=== PATIENT | female | born 1965 | race American Indian/Alaskan Native ===

== ENCOUNTER 2016-05-16 13:48 | Emergency (ER) | payer MEDICARE ==
[2016-05-16 14:28] VITALS: BP 180/110
--- NOTE | 2016-05-16 15:02 | Emergency Department Report ---
Chief Complaint: Pain General Stated Complaint: CHEST PAIN/BODY ACHE/NAUSEA Time Seen by Provider: 05/16/16 14:40 - HPI History of Present Illness: 50-year-old female with a past medical history of diabetes and hypertension comes in for complaint of fever chills body aches sore throat since yesterday. Patient does report that her blood sugar was as low as 45 yesterday because she is not eating secondary to sore throat. A little dry cough nausea no vomiting she's been taking Advil for fever last dose was 6:30 this morning. Also complains of headache. Patient reports she is on metformin valsartan glipizide and Klonopin her blood sugar in triage is 132. - Exam Vital Signs: Vital Signs 05/16/16 14:23 Temperature 99.9 F H Pulse Rate 120 H Respiratory 24 Rate Blood Pressure 180/110 O2 Sat by Pulse 100 Oximetry Physical Exam: Patient is alert and oriented 3. Throat erythematous edematous. Cardiovascular tachycardia, respiratory clear to auscultation abdomen soft nontender nondistended bowel sounds throughout MSE screening note: Focused history and physical exam performed. Due to findings the following was ordered: CBC BMP UA has been ordered patient be evaluated in the main ER. Once labs come back if there is stable enough this provider will order hypertensive medicine and Tylenol for pain. ED Disposition for MSE Condition: Stable
[2016-05-16 15:43] LABS: Hematocrit 39.4 % (30.3-42.9); Mean Corpuscular HGB Conc 33 % (30-34); Mean Corpuscular Hemoglobin 28 pg (28-32); Mean Corpuscular Volume 85 fl (79-97); Platelet Count 338 K/mm3 (140-440); Red Blood Count 4.61 M/mm3 (3.65-5.03); White Blood Count 19.4 K/mm3 (4.5-11.0)
[2016-05-16 15:46] LABS: Alanine Aminotransferase 61 units/L (7-56); Albumin 4.1 g/dL (3.9-5); Albumin/Globulin Ratio 1.4 %; Alkaline Phosphatase 106 units/L (35-129); Anion Gap 20 mmol/L; BUN/Creatinine Ratio 12.85; Bilirubin,Total 0.2 mg/dL (0.1-1.2); Blood Urea Nitrogen 9 mg/dL (7-17); Calcium 9.1 mg/dL (8.4-10.2); Carbon Dioxide 22 mmol/L (22-30); Chloride 101.2 mmol/L (98-107); Glucose 127 mg/dL (65-100); Potassium 3.7 mmol/L (3.6-5.0); Sodium 139 mmol/L (137-145)
[2016-05-16 16:38] LABS: Bacteria,Urine 1+ /HPF (Negative); Bilirubin,Urine NEG (Negative); Blood,Urine NEG (Negative); Ketones,Urine NEG (Negative); Leukocyte Esterase,Urine TR (Negative); Mucus,Urine FEW /HPF; Nitrite,Urine NEG (Negative)
[2016-05-16] MEDS ORDERED: TYLENOL PO ONE (19:00)
[2016-05-16] MEDS ORDERED: CATAPRES PO ONE (19:01)
[2016-05-16] MEDS ORDERED: TYLENOL ONE (21:03)
[2016-05-16] MEDS ORDERED: CATAPRES ONE ×2 (21:04→21:24)
--- NOTE | 2016-05-16 23:02 | Emergency Department Report ---
ED General Adult HPI - General Chief complaint: Pain General Stated complaint: CHEST PAIN/BODY ACHE/NAUSEA Time Seen by Provider: 05/16/16 14:40 Source: patient Mode of arrival: Ambulatory Limitations: No Limitations - Related Data Allergies Allergy/AdvReac Type Severity Reaction Status Date / Time No Known Allergies Allergy Unverified 05/16/16 14:30 ED Review of Systems ROS: Stated complaint: CHEST PAIN/BODY ACHE/NAUSEA Other details as noted in HPI ED Past Medical Hx - Past Medical History Hx Hypertension: Yes Hx Diabetes: Yes Hx Psychiatric Treatment: Yes (ANXIETY) - Surgical History Hx Cholecystectomy: Yes Additional Surgical History: LEFT OVARY REMOVED. HYSTERECTOMY. OVARIAN CYSTS REMOVED. - Social History Smoking Status: Current Every Day Smoker Substance Use Type: Alcohol ED Physical Exam - General Limitations: No Limitations ED Course Vital Signs 05/16/16 14:23 Temperature 99.9 F H Pulse Rate 120 H Respiratory 24 Rate Blood Pressure 180/110 O2 Sat by Pulse 100 Oximetry ED Medical Decision Making - Lab Data Result diagrams: 05/16/16 15:01 05/16/16 15:01 Critical care attestation.: If time is entered above; I have spent that time in minutes in the direct care of this critically ill patient, excluding procedure time. ED Disposition Condition: Stable
--- NOTE | 2016-05-17 13:47 | ED Elopement Review ---
ED Pt Elopement review - Results review Lab results: Laboratory Tests 05/16/16 05/16/16 05/16/16 14:48 15:01 15:01 WBC 19.4 H RBC 4.61 Hgb 13.0 Hct 39.4 MCV 85 MCH 28 MCHC 33 RDW 16.0 H Plt Count 338 Sodium 139 Potassium 3.7 Chloride 101.2 Carbon Dioxide 22 Anion Gap 20 BUN 9 Creatinine 0.7 Estimated GFR > 60 BUN/Creatinine Ratio 12.85 Glucose 127 H POC Glucose 132 H Calcium 9.1 Total Bilirubin 0.2 AST 36 ALT 61 H Alkaline Phosphatase 106 Total Protein 7.0 Albumin 4.1 Albumin/Globulin Ratio 1.4 Urine Color Urine Turbidity Urine pH Ur Specific [place] Urine Protein Urine Glucose (UA) Urine Ketones Urine Blood Urine Nitrite Urine Bilirubin Urine Urobilinogen Ur Leukocyte Esterase Urine WBC (Auto) Urine RBC (Auto) U Epithel Cells (Auto) Urine Bacteria (Auto) Urine Mucus 05/16/16 16:07 WBC RBC Hgb Hct MCV MCH MCHC RDW Plt Count Sodium Potassium Chloride Carbon Dioxide Anion Gap BUN Creatinine Estimated GFR BUN/Creatinine Ratio Glucose POC Glucose Calcium Total Bilirubin AST ALT Alkaline Phosphatase Total Protein Albumin Albumin/Globulin Ratio Urine Color Yellow Urine Turbidity Clear Urine pH 5.0 Ur Specific [place] 1.014 Urine Protein 30 mg/dl Urine Glucose (UA) Neg Urine Ketones Neg Urine Blood Neg Urine Nitrite Neg Urine Bilirubin Neg Urine Urobilinogen 2.0 Ur Leukocyte Esterase Tr Urine WBC (Auto) 6.0 Urine RBC (Auto) 3.0 U Epithel Cells (Auto) 5.0 Urine Bacteria (Auto) 1+ Urine Mucus Few - Call Back decision Pt Call Back Decision: Pt to F/U with PMD (fever and white blood cell count of 19,000)
== END 2016-05-16 16:20 | disposition left against medical advice (07) ==
LOC: ED 13:48
DX: R50.9 Fever, unspecified (principal); M79.1 Myalgia; J02.9 Acute pharyngitis, unspecified; R05 Cough; R11.0 Nausea; Z53.21 Procedure and treatment not carried out due to patient leaving prior to being seen by health care provider
CPT/HCPCS: 36415; 80053; 81001; 82962; 85027; 87116; 87430; 93005; 93010